=== PATIENT | female | born 1965 | race African-American/Black ===

== ENCOUNTER 2022-04-20 16:28 | Inpatient (IN) | payer OTHER ==
[2022-04-20] MEDS ORDERED: SODIUM CHLORIDE 0.9% 500 ML INFUS.BAG IV ONE (17:30)
[2022-04-20] MEDS ORDERED: LORazepam 2 MG/ML SDV VIAL IVPUSH ONE ×2 (17:31→17:50)
[2022-04-20 18:19] LABS: BASO % 0.9 % (0-2.0); EOS % 0.2 % (0-4.5); HEMATOCRIT 34.5 % (32.4-45.2); HEMOGLOBIN 11.8 GM/dL (10.7-15.3); LYMPH % 8.2 % (8-40); MCH 31.2 pg (25.7-33.7); MCHC 34.2 g/dl (32.0-36.0); MEAN CELL VOLUME 91.5 fl (80-96); MEAN PLT VOLUME 7.6 fl (7.5-11.1); MONO % 13.8 % (3.8-10.2); NEUT % 76.9 % (42.8-82.8); PLATELET COUNT 355 10^3/uL (134-434); RBC 3.78 M/mm3 (3.60-5.2); RDW 15.5 % (11.6-15.6); WHITE BLOOD COUNT 6.3 K/mm3 (4.0-10.0)
[2022-04-20 18:33] LABS: INR 0.95 (0.83-1.09); PROTHROMBIN TIME (PATIENT) 10.9 SEC (9.7-13.0)
[2022-04-20 18:35] LABS: ACTIVATED PTT 32.7 SECONDS (25.2-36.5)
[2022-04-20 19:03] LABS: CHLORIDE 90 mmol/L (98-107); SODIUM 122 mmol/L (136-145)
[2022-04-20 19:06] LABS: BLOOD UREA NITROGEN 11.3 mg/dL (7-18); CALCIUM 9.4 mg/dL (8.5-10.1); CO2 21 mmol/L (21-32); GLUCOSE,RANDOM 115 mg/dL (74-106); LIPASE 111 U/L (73-393); MAGNESIUM 2.3 mg/dL (1.8-2.4)
[2022-04-20 19:07] LABS: ALBUMIN 3.5 g/dl (3.4-5.0)
[2022-04-20 19:09] LABS: CREATININE 1.4 mg/dL (0.55-1.3); SGOT/AST 104 U/L (15-37)
[2022-04-20] MEDS ORDERED: LABETALOL HCL 5 MG/1 ML (100MG/20 ML VIAL) IVPUSH ONE ×2 (19:10→19:27)
[2022-04-20 19:11] LABS: BILIRUBIN,TOTAL 0.6 mg/dL (0.2-1); TOT PROT 10.2 g/dl (6.4-8.2)
[2022-04-20 19:12] LABS: ALK PHOS 145 U/L (45-117)
[2022-04-20 19:14] LABS: ANION GAP 11 MMOL/L (8-16); SGPT/ALT 36 U/L (13-61)
[2022-04-20] MEDS ORDERED: SODIUM CHLORIDE 1,000 ML IV ONE (19:38)
[2022-04-20] MEDS ORDERED: LABETALOL HCL 5 MG/1 ML (100MG/20 ML VIAL) ONE (20:04)
[2022-04-20 20:56] LABS: CALCIUM 9.3 mg/dL (8.5-10.1)
[2022-04-20 20:57] LABS: ALBUMIN 3.4 g/dl (3.4-5.0)
[2022-04-20 21:00] LABS: CREATININE 1.3 mg/dL (0.55-1.3)
[2022-04-20 21:01] LABS: TOT PROT 8.5 g/dl (6.4-8.2)
[2022-04-20 21:02] LABS: BILIRUBIN,TOTAL 0.5 mg/dL (0.2-1)
[2022-04-20] MEDS ORDERED: DEXTROSE 5%-0.45% SALINE 1,000 ML IV SCH (23:30)
[2022-04-20] MEDS ORDERED: ACETAMINOPHEN 325 MG TABLET (FP) PO PRN (23:30)
[2022-04-21] MEDS ORDERED: amLODIPine BESYLATE 5 MG TABLET (FP) ONE ×2 (01:36→08:55)
[2022-04-21] MEDS ORDERED: chlordiazePOXIDE HCL 25 MG CAPSULE ONE (01:37)
[2022-04-21] MEDS ORDERED: chlordiazePOXIDE HCL 25 MG CAPSULE PO ONE ×2 (01:39→14:55)
[2022-04-21] MEDS ORDERED: amLODIPine BESYLATE 5 MG TABLET (FP) PO ONE (01:40)
[2022-04-21 07:54] LABS: BASO % 0.7 % (0-2.0); EOS % 0.3 % (0-4.5); HEMATOCRIT 28.8 % (32.4-45.2); HEMOGLOBIN 9.9 GM/dL (10.7-15.3); MCH 31.6 pg (25.7-33.7); MCHC 34.2 g/dl (32.0-36.0); MEAN CELL VOLUME 92.3 fl (80-96); MEAN PLT VOLUME 6.8 fl (7.5-11.1); MONO % 17.4 % (3.8-10.2); NEUT % 65.6 % (42.8-82.8); PLATELET COUNT 325 10^3/uL (134-434); RBC 3.12 M/mm3 (3.60-5.2); RDW 15.5 % (11.6-15.6); WHITE BLOOD COUNT 3.9 K/mm3 (4.0-10.0)
[2022-04-21 08:39] LABS: CALCIUM 8.6 mg/dL (8.5-10.1)
[2022-04-21 08:40] LABS: ALBUMIN 3.1 g/dl (3.4-5.0); BLOOD UREA NITROGEN 11.5 mg/dL (7-18)
[2022-04-21 08:43] LABS: CREATININE 1.3 mg/dL (0.55-1.3)
[2022-04-21 08:44] LABS: BILIRUBIN,TOTAL 0.6 mg/dL (0.2-1)
[2022-04-21 08:45] LABS: TOT PROT 7.6 g/dl (6.4-8.2)
[2022-04-21] MEDS ORDERED: THIAMINE HCL 100 MG TABLET (FP) ONE (08:55)
[2022-04-21] MEDS ORDERED: LOSARTAN POTASSIUM 50 MG TABLET ONE (08:55)
[2022-04-21] MEDS ORDERED: FOLIC ACID 1 MG TABLET (FP) ONE (08:56)
[2022-04-21] MEDS ORDERED: HEPARIN NA (PORCINE) 5,000 UNITS/ML 1ML VIAL ONE (08:56)
[2022-04-21] MEDS: HEPARIN NA (PORCINE) 5,000 UNITS/ML 1ML VIAL SQ SCH ×2 (09:03→22:15)
[2022-04-21] MEDS: FOLIC ACID 1 MG TABLET (FP) PO SCH (09:03)
[2022-04-21 09:17] LABS: N-TERMINAL BNP 840.8 pg/ml (5-125)
[2022-04-21] MEDS ORDERED: THIAMINE HCL 100 MG TABLET (FP) PO SCH (10:00)
[2022-04-21] MEDS ORDERED: LOSARTAN POTASSIUM 50 MG TABLET PO SCH (10:00)
[2022-04-21] MEDS ORDERED: amLODIPine BESYLATE 5 MG TABLET (FP) PO SCH (10:00)
[2022-04-21] MEDS ORDERED: ACETAMINOPHEN INJECTION 100 ML IVPB ONE (12:02)
[2022-04-21] MEDS ORDERED: LOSARTAN POTASSIUM 50 MG TABLET PO ONE (13:37)
[2022-04-21] MEDS ORDERED: CHLORTHALIDONE 25 MG TABLET PO SCH (14:30)
[2022-04-21 14:58] VITALS: BMI 24.8
[2022-04-21] MEDS: amLODIPine BESYLATE 5 MG TABLET (FP) PO SCH (18:59)
[2022-04-21] MEDS: CHLORTHALIDONE 25 MG TABLET PO SCH (22:15)
[2022-04-21] MEDS: THIAMINE HCL 200 MG/2 ML VIAL IVPB SCH (23:57)
[2022-04-22] MEDS: THIAMINE HCL 200 MG/2 ML VIAL IVPB SCH ×3 (06:13→22:50)
[2022-04-22] MEDS ORDERED: THIAMINE HCL 200 MG/2 ML VIAL IVPB SCH (10:00)
[2022-04-22 10:04] LABS: EPI CELLS 13 /uL (0-25.1); HYALINE CASTS 1 /uL (0-3.1); PH,URINE 6.5 (5.0-8.0); URINE APPEARANCE CLEAR; URINE BACTERIA 1108 /uL (0-1359); URINE BILIRUBIN NEGATIVE (NEGATIVE); URINE COLOR YELLOW; URINE GLUCOSE (UA) NEGATIVE (NEGATIVE); URINE KETONE NEGATIVE (NEGATIVE); URINE LEUK ESTERASE 3+ (NEGATIVE); URINE NITRITE NEGATIVE (NEGATIVE); URINE PROTEIN NEGATIVE (NEGATIVE); URINE RBC 4 /uL (0-23.9); URINE UROBILINOGEN 0.2 mg/dL (0.2-1.0); URINE WBC 304 /uL (0-25.8)
[2022-04-22] MEDS: HEPARIN NA (PORCINE) 5,000 UNITS/ML 1ML VIAL SQ SCH ×2 (10:18→22:07)
[2022-04-22] MEDS: LOSARTAN POTASSIUM 50 MG TABLET PO SCH (10:18)
[2022-04-22] MEDS: amLODIPine BESYLATE 5 MG TABLET (FP) PO SCH (10:19)
[2022-04-22] MEDS: FOLIC ACID 1 MG TABLET (FP) PO SCH (10:19)
[2022-04-22] MEDS: CHLORTHALIDONE 25 MG TABLET PO SCH ×2 (10:20→22:07)
[2022-04-22] MEDS ORDERED: amLODIPine BESYLATE 5 MG TABLET (FP) PO ONE (16:00)
[2022-04-23] MEDS: THIAMINE HCL 200 MG/2 ML VIAL IVPB SCH ×3 (06:09→23:46)
[2022-04-23 08:31] LABS: BASO % 0.9 % (0-2.0); EOS % 0.7 % (0-4.5); HEMOGLOBIN 11.2 GM/dL (10.7-15.3); LYMPH % 15.2 % (8-40); MCH 31.5 pg (25.7-33.7); MEAN CELL VOLUME 92.7 fl (80-96); MEAN PLT VOLUME 7.2 fl (7.5-11.1); MONO % 12.9 % (3.8-10.2); NEUT % 70.3 % (42.8-82.8); PLATELET COUNT 381 10^3/uL (134-434); RBC 3.56 M/mm3 (3.60-5.2); RDW 15.5 % (11.6-15.6)
[2022-04-23 08:47] LABS: ALBUMIN 3.4 g/dl (3.4-5.0); BLOOD UREA NITROGEN 14.5 mg/dL (7-18); CALCIUM 9.6 mg/dL (8.5-10.1)
[2022-04-23 08:50] LABS: CREATININE 1.4 mg/dL (0.55-1.3)
[2022-04-23 08:51] LABS: BILIRUBIN,TOTAL 0.7 mg/dL (0.2-1); TOT PROT 8.5 g/dl (6.4-8.2)
[2022-04-23] MEDS: LOSARTAN POTASSIUM 50 MG TABLET PO SCH (09:02)
[2022-04-23] MEDS: FOLIC ACID 1 MG TABLET (FP) PO SCH (09:03)
[2022-04-23] MEDS: HEPARIN NA (PORCINE) 5,000 UNITS/ML 1ML VIAL SQ SCH ×2 (09:03→22:26)
[2022-04-23] MEDS: CHLORTHALIDONE 25 MG TABLET PO SCH ×2 (09:03→22:26)
[2022-04-23] MEDS: amLODIPine BESYLATE 10 MG TABLET (FP) PO SCH (09:05)
[2022-04-23] MEDS: CARVEDILOL 6.25 MG TABLET (FP) PO SCH ×2 (13:35→22:26)
[2022-04-23] MEDS: chlordiazePOXIDE 5 MG CAPSULE PO SCH (22:28)
[2022-04-24] MEDS: THIAMINE HCL 200 MG/2 ML VIAL IVPB SCH ×2 (06:07→15:13)
[2022-04-24] MEDS: amLODIPine BESYLATE 10 MG TABLET (FP) PO SCH (10:29)
[2022-04-24] MEDS: HEPARIN NA (PORCINE) 5,000 UNITS/ML 1ML VIAL SQ SCH ×2 (10:29→22:13)
[2022-04-24] MEDS: CARVEDILOL 6.25 MG TABLET (FP) PO SCH ×2 (10:29→22:13)
[2022-04-24] MEDS: FOLIC ACID 1 MG TABLET (FP) PO SCH (10:30)
[2022-04-24] MEDS: LOSARTAN POTASSIUM 50 MG TABLET PO SCH (10:30)
[2022-04-24] MEDS: chlordiazePOXIDE 5 MG CAPSULE PO SCH ×2 (10:30→22:13)
[2022-04-24] MEDS: CHLORTHALIDONE 25 MG TABLET PO SCH ×2 (10:31→22:13)
[2022-04-25] MEDS: amLODIPine BESYLATE 10 MG TABLET (FP) PO SCH ×2 (07:48→11:48)
[2022-04-25] MEDS: FOLIC ACID 1 MG TABLET (FP) PO SCH ×2 (07:48→11:48)
[2022-04-25] MEDS: LOSARTAN POTASSIUM 50 MG TABLET PO SCH ×2 (07:48→11:47)
[2022-04-25] MEDS: CHLORTHALIDONE 25 MG TABLET PO SCH ×2 (07:48→11:48)
[2022-04-25] MEDS: chlordiazePOXIDE 5 MG CAPSULE PO SCH ×2 (07:48→10:00)
[2022-04-25] MEDS ORDERED: REGADENOSON 0.4 MG/5 ML PRE-FILLED SYRINGE IVPUSH ONE ×2 (10:09→10:30)
[2022-04-25] MEDS: CARVEDILOL 6.25 MG TABLET (FP) PO SCH (10:30)
[2022-04-25] MEDS: HEPARIN NA (PORCINE) 5,000 UNITS/ML 1ML VIAL SQ SCH (12:04)
[2022-04-25 18:00] VITALS: BP 139/90; PULSE 112; RESP 15; TEMP 98.7
== END 2022-04-25 18:05 | disposition home or self-care (01) | DRG 312 ==
LOC: JER 16:28 → JERBED 21:42 → J4W 04-21 14:12
PROVIDERS: ADMIT Internal Medicine; ATTEND Internal Medicine
DX: R55 Syncope and collapse (principal); I10 Essential (primary) hypertension; Z91.14 Patient's other noncompliance with medication regimen; E86.0 Dehydration; E87.5 Hyperkalemia; F10.10 Alcohol abuse, uncomplicated
CPT/HCPCS: 36415; 70450-TC; 71045-TC-FY; 72125-TC; 78452-TC; 80053; 80061; 80307; 81003; 82550; 82553; 83036; 83690; 83735; 83880; 84443; 84484; 85025; 85610; 85730; 87086; 93005; 93010; 93017; 93306-TC; 93880-TC; 99285-25; A9502; C9803-CS; J1644; J2785; U0003; U0005